=== PATIENT | male | born 1970 | race African-American/Black ===

== ENCOUNTER 2020-01-06 16:29 | Emergency (ER) | payer OTHER ==
[2020-01-06 16:38] VITALS: BP 141/99; PULSE 78; RESP 18; TEMP 98.4
[2020-01-06] MEDS ORDERED: PENICILLIN VK 500MG STARTER 4 TAB BTL PO STA (16:46)
[2020-01-06] MEDS ORDERED: ACET/COD 300 MG/30 MG STARTER PACK 6 TAB BTL PO STA (16:46)
--- NOTE | 2020-01-06 16:53 | ED ---
General Adult HPI - General Chief complaint: Dental/Oral Stated complaint: Tooth pain/swollen Time Seen by Provider: 01/06/20 16:35 Source: patient, RN notes reviewed Mode of arrival: ambulatory Limitations: no limitations - History of Present Illness Initial comments: Patient is a pleasant 49-year-old male presenting to the emergency Department with dental pain and swelling. Onset of symptoms was a couple of days ago. Patient does have history of similar symptoms previously which she believes may have been the same area however has been years ago. Patient had change of insurance and has not followed up recently with dentist. No fevers. No difficulty swallowing or dyspnea. - Related Data Home Medications Medication Instructions Recorded Confirmed Travoprost (Benzalkonium) 1 drop TOPICAL HS 04/07/16 06/20/16 [Travoprost 0.004% Eye Drop] Previous Rx's Medication Instructions Recorded Penicillin V Potassium [Pen Vee K] 500 mg PO TID #40 tab 06/20/16 traMADol HCl [Ultram] 50 mg PO Q4H PRN #20 tab 06/20/16 Penicillin V Potassium [Pen Vee K] 500 mg PO QID #40 tablet 01/06/20 Allergies Allergy/AdvReac Type Severity Reaction Status Date / Time No Known Allergies Allergy Verified 01/06/20 16:34 Review of Systems ROS Statement: Those systems with pertinent positive or pertinent negative responses have been documented in the HPI. ROS Other: All systems not noted in ROS Statement are negative. Constitutional: Denies: fever Eyes: Denies: eye pain ENT: Reports: as per HPI, dental pain Respiratory: Denies: cough, dyspnea Cardiovascular: Denies: chest pain Endocrine: Denies: fatigue Past Medical History Past Medical History: No Reported History History of Any Multi-Drug Resistant Organisms: None Reported Past Surgical History: No Surgical Hx Reported Past Psychological History: No Psychological Hx Reported Smoking Status: Current every day smoker Past Alcohol Use History: Occasional Past Drug Use History: None Reported General Exam Limitations: no limitations General appearance: alert, in no apparent distress Head exam: Present: normocephalic Eye exam: Present: normal appearance ENT exam: Present: other (Right mandibular swelling, mild. Patient does have poor dentition with some gingival swelling lateral to the first premolar region. Severe tooth decay. No obvious drainable abscess.) Neck exam: Present: normal inspection Respiratory exam: Present: normal lung sounds bilaterally Cardiovascular Exam: Present: regular rate, normal rhythm GI/Abdominal exam: Present: soft. Absent: tenderness Neurological exam: Present: alert, CN II-XII intact Psychiatric exam: Present: normal affect, normal mood Course Vital Signs 01/06/20 16:35 Temperature 98.4 F Pulse Rate 78 Respiratory 18 Rate Blood Pressure 141/99 O2 Sat by Pulse 97 Oximetry Procedures - Nerve Block Consent Obtained: verbal consent Local Anesthetic Used: Lidocaine 1% Amount of anesthesia used: 1 Side: right Intraoral Nerve Block: supraperiosteal Complications: none Patient Tolerated Procedure: well, no complications Additional Comments: Small amount of purulent drainage was obtained. Disposition Clinical Impression: Dental abscess Disposition: HOME SELF-CARE Condition: Stable Instructions (If sedation given, give patient instructions): Dental Abscess (ED) Additional Instructions: Please follow-up with dentist and primary care physician in the next couple days for recheck. Return for fevers, increased pain or swelling, difficulty breathing or swallowing, worsening symptoms or other concerns. Prescription sent to [facility] on Prescriptions: Penicillin V Potassium [Pen Vee K] 500 mg PO QID #40 tablet Is patient prescribed a controlled substance at d/c from ED?: No Referrals: Aldo Mina MD [Primary Care Provider] - 1-2 days Time of Disposition: 16:53
[2020-01-06] MEDS ORDERED: LIDOCAINE 1% INJ 10MG/ML (20 ML MDV) SQ ONE (17:14)
--- NOTE | 2020-01-08 07:43 | CDI ---
Dear Brando Storm , DO Please provide dental abscess I & D complete procedure. Thank you, Ibis Howell Homeopathic Doctor If you have any questions, please contact [facility] Cook at [phone] [facility]
== END 2020-01-06 17:15 | disposition home or self-care (01) ==
LOC: EC 16:29
DX: K04.7 Periapical abscess without sinus (principal); F17.200 Nicotine dependence, unspecified, uncomplicated; Z79.899 Other long term (current) drug therapy
CPT/HCPCS: 99282; 41800; J2001

== ENCOUNTER → 2025-04-24 | Outpatient (CLI) | payer OTHER ==
--- NOTE | 2025-04-24 11:08 | CTL ---
EXAMINATION TYPE: CT Low Dose Lung DATE OF EXAM: 04/24/2025 10:54 AM COMPARISON: None. CLINICAL INDICATION: Male, 55 years old with history of F17.210 nicotine dependence, FORMER SMOKER, Q UIT 1 MONTH AGO. SMOKED 1 PPD X40 YEARS, History of tobacco use. TECHNIQUE: Low Dose CT Lung Screening, Low dose computed tomography scan was performed through the est at 1 millimeter thick sections and reconstructed images in the coronal plane at 1 mm thick sectio ns. IV CONTRAST USED: None. SCREENING VISIT: First visit CT DLP: 150.3 mGycm, Automated exposure control for dose reduction was used. CT CTDI: 3.7 mGy FINDINGS: CT DIAGNOSTIC QUALITY: Satisfactory LUNG NODULES: Not presentLeft lung: no nodules identified.Right lung: no nodules identified. LUNGS: COPD: Severity: None Fibrosis: Severity:None Lymph nodes: None Other findings: None RIGHT PLEURAL SPACE: Effusion: None Calcification: None Thickening: None Pneumothorax: None LEFT PLEURAL SPACE: Effusion: None Calcification: None Thickening: None Pneumothorax: None HEART: * Size within normal limits. * No significant coronary artery calcifications. OTHER FINDINGS: Upper abdomen: No significant abnormality Bony thorax: Degenerative changes Supraclavicular region: No significant abnormalityOther: No significant abnormalityI IMPRESSION: 1. No clinically significant pulmonary nodules. 2. Mild emphysema. CT LUNG RAD AND CT CHEST RECOMMENDATION: Lung-Rad 1 Negative: Continue annual screening with LDCT in 12 months. S Modifier (other clinically significant findings): [facility], , 04/24/2025 11:06 AM
== END | disposition home or self-care (01) ==
LOC: RADCTMAIN 10:25
PROVIDERS: ATTEND Family Medicine
DX: Z12.2 Encounter for screening for malignant neoplasm of respiratory organs (principal); J43.9 Emphysema, unspecified; Z87.891 Personal history of nicotine dependence
CPT/HCPCS: 71271